=== PATIENT | male | born 1990 | race Caucasian/White ===

== ENCOUNTER 2017-01-18 14:08 | Emergency (ER) | payer MEDICARE, OTHER ==
[~2017-01-18 14:08] MED LIST: ADVIL PO; AMIT25 PO; BENTYL10 PO; DICYCLOMINE PO; KDUR10 PO; KLONO1 PO; LAN125 PO; MCZ25 PO; MULTIVITAMI1 PO; NITROSTAT0.4 MG SL; P20 PO; PRILOSEC40 MG PO; PROAIR HFA INH; TRILEP150 PO; TRILEP300 PO; ULTRAM50 PO; V5 PO; ZANTAC300 MG PO
== END 2017-01-18 17:17 | disposition home or self-care (01) ==
LOC: ER 14:08
DX: R60.9 Edema, unspecified (principal); Z88.0 Allergy status to penicillin; Z88.2 Allergy status to sulfonamides; Z88.1 Allergy status to other antibiotic agents; Z88.6 Allergy status to analgesic agent; Z79.899 Other long term (current) drug therapy; Z79.52 Long term (current) use of systemic steroids
CPT/HCPCS: 96374; 99283; J1885; J2930